=== PATIENT | male | born 1970 | race Caucasian/White ===

== ENCOUNTER 2018-07-28 05:39 | Day surgery (SDC) | payer BC ==
[~2018-07-28] VITALS: Ht 177.8 cm; Wt 94.6 kg
[~2018-07-28 05:39] MED LIST: AMOCLA875 PO; CHOL10002 PO; HYDACE5 PO; LISI20 PO; OMEGA 3 KRILL OIL PO; OMEPRAZOLE20 MG PO
--- NOTE | 2018-07-28 06:33 | NUR ---
PT ADMITTED TO [facility]. AGREES WITH PLANNED SURGER. LUNG SUNDS CLEAR.
--- NOTE | 2018-07-28 07:57 | NUR ---
07/28/18 0757 Chris Neumann 2GM @ [address] [facility]
--- NOTE | 2018-07-28 09:29 | NUR ---
Patient up to Ambulate independently. Gait steady. Dressing to procedure site clean, dry, intact with no visible drainage, swelling, erythema or bruising noted. Dressing to procedure site clean, dry, intact with no visible drainage, swelling, erythema or bruising noted. Patient States Post-Procedure ride home has been arranged. Discharged via wheelchair to private car for ride home.
== END 2018-07-28 09:29 | disposition home or self-care (01) ==
LOC: ORSCMMR 05:39 → ORD 07:30 → ORSCMMR 07:30
PROVIDERS: Surgery
PROC: 0WUF0JZ Supplement Abdominal Wall with Synthetic Substitute, Open Approach (ICD-10-PCS; principal; 2018-07-28 07:30)
DX: K42.9 Umbilical hernia without obstruction or gangrene (principal); K21.9 Gastro-esophageal reflux disease without esophagitis; J44.9 Chronic obstructive pulmonary disease, unspecified; I10 Essential (primary) hypertension; F17.210 Nicotine dependence, cigarettes, uncomplicated; Z79.899 Other long term (current) drug therapy
CPT/HCPCS: A9270-GY; C1781; J0690; J1100; J1885; J2250; J2370; J2405; J2704; J2710; J3010; J7120

== ENCOUNTER 2023-12-17 08:05 | Day surgery (SDC) | payer BC ==
[~2023-12-17] VITALS: Ht 172.7 cm; Wt 135.7 kg
[~2023-12-17 08:05] MED LIST changes: +Adipex-P37.5 M1 PO; +HYDCHL25 PO; +LOSA25 PO; +NORVASC5 MG PO; +SILD50TA PO
[2023-12-17] MEDS ORDERED: propofoL 50 ML IV ONE (08:59)
[2023-12-17] MEDS ORDERED: Lactated Ringer's 1,000 ML IV ONE ×2 (09:01→09:17)
[2023-12-17 10:45] VITALS: BP 128/93
--- NOTE | 2023-12-17 10:46 | NUR ---
12/17/23 1046 Jocelyn Calixto PATIENT PROVIDED DIVERTICULOSIS PAMPH INSTRUCTED BY DR SANFORD
== END 2023-12-17 10:35 | disposition home or self-care (01) ==
LOC: ORSCSDS 08:05
PROVIDERS: Internal Medicine Gastroenterology
PROC: 0DBK8ZX Excision of Ascending Colon, Via Natural or Artificial Opening Endoscopic, Diagnostic (ICD-10-PCS; principal; 2023-12-17 09:30)
PROC: 0DBN8ZX Excision of Sigmoid Colon, Via Natural or Artificial Opening Endoscopic, Diagnostic (ICD-10-PCS; principal; 2023-12-17 09:30)
DX: Z12.11 Encounter for screening for malignant neoplasm of colon (principal); D12.2 Benign neoplasm of ascending colon; K63.5 Polyp of colon; K57.30 Diverticulosis of large intestine without perforation or abscess without bleeding; K64.8 Other hemorrhoids; I12.9 Hypertensive chronic kidney disease with stage 1 through stage 4 chronic kidney disease, or unspecified chronic kidney disease; N18.9 Chronic kidney disease, unspecified; E78.5 Hyperlipidemia, unspecified; Z87.891 Personal history of nicotine dependence; Z79.899 Other long term (current) drug therapy; Z68.38 Body mass index [BMI] 38.0-38.9, adult
CPT/HCPCS: 88305; J2704; J7120